=== PATIENT | male | born 1990 | race Caucasian/White ===

== ENCOUNTER 2018-10-16 22:09 | Emergency (ER) | payer SELFPAY ==
[2018-10-17] MEDS ORDERED: LIDOCAINE 1% INJ-PF (10 MG/ML) 30 ML SDV INJ ONE (01:04)
--- NOTE | 2018-10-17 01:08 | ER Document Report ---
ED General - General Chief Complaint: Laceration Stated Complaint: FACE INJURY Time Seen by Provider: 10/17/18 00:54 TRAVEL OUTSIDE OF THE [place] IN LAST 30 DAYS: No - HPI Notes: Patient is a 27-year-old male that presents to the emergency department for chief complaint of facial injury. Patient states around 8:30 PM this evening he dove face first into a pool that was 5 feet deep. Patient was wearing a goggles. He states his face hit the bottom of the pool. He does state his neck was extended. He denies loss of consciousness. Patient states initially his neck was sore but it was mild. He had some paresthesias in his right fingertips initially which have now resolved. He denied any focal weakness. Patient's main complaint is pain in his nose from where the mask was placed on his face. Last tetanus vaccine was 4 years ago. Patient does endorse drinking 7-8 beers this evening. Past Medical History: Negative Past Surgical History: Negative Social History: Daily tobacco. Social alcohol. Denies drug use. Family History: Reviewed and noncontributory for presenting illness Allergies: Reviewed, see documented allergy list. REVIEW OF SYSTEMS: CONSTITUTIONAL : No fever No chills No diaphoresis No recent illness EENT: No vision changes No congestion No sore throat Nasal pain CARDIOVASCULAR: No chest pain No palpitations RESPIRATORY: No shortness of breath No cough No difficulty breathing GASTROINTESTINAL: No abdominal pain No nausea No vomiting No diarrhea GENITOURINARY: No dysuria No hematuria No difficulty urinating MUSCULOSKELETAL: No back pain No leg pain No arm pain Neck pain SKIN: No rashes No lesions LYMPHATIC: No swollen, enlarged glands. NEUROLOGICAL: No lightheadedness No headache No weakness paresthesias PSYCHIATRIC: No anxiety No depression PHYSICAL EXAMINATION: Vital signs reviewed, nursing noted reviewed. GENERAL: Well-appearing, well-nourished and in no acute distress. HEAD: Atraumatic, normocephalic. EYES: Eyes appear normal, extraocular movements intact, sclera anicteric, conjunctiva are normal. ENT: No facial bone laxity, nasal bridge tenderness to palpation with laceration and no active bleeding, no nasal septal hematoma. Nares patent, oropharynx clear without exudates. Moist mucous membranes. NECK: Cervical collar in place. Diffuse midline cervical spine tenderness without obvious deformity, supple without lymphadenopathy LUNGS: Breath sounds clear to auscultation bilaterally and equal. No wheezes rales or rhonchi. HEART: Regular rate and rhythm without murmurs ABDOMEN: Soft, nontender, normoactive bowel sounds. No rebound, guarding, or rigidity. No masses appreciated. EXTREMITIES: Nontender, good range of motion, no pitting or edema. NEUROLOGICAL: GCS 15 no focal neurological deficits. Moves all extremities spontaneously Motor and sensory grossly intact on exam. PSYCH: Normal mood, normal affect. SKIN: Warm, Dry, normal turgor. 2.8 cm full-thickness curvilinear laceration across nasal bridge and down the left side of the nose without active bleeding or exposed bone/cartilage - Related Data Allergies/Adverse Reactions: No Known Allergies Allergy (Verified 05/04/15 16:24) Past Medical History - Social History Smoking Status: Current Every Day Smoker Family History: Reviewed & Not Pertinent Past Surgical History: Reports: Hx Orthopedic Surgery - left hand - Immunizations Hx Diphtheria, Pertussis, Tetanus Vaccination: Yes Physical Exam - Vital signs Vitals: Temp Pulse Resp BP Pulse Ox 98.5 F 81 16 122/79 99 10/16/18 22:26 10/16/18 22:26 10/16/18 22:26 10/16/18 22:26 10/16/18 22:26 Course - Re-evaluation Re-evalutation: 10/17/18 01:08 Vitals reviewed. Nursing notes reviewed. Patient is alert and mentating appropriately. His tetanus vaccine is up-to-date. Patient was placed in a cervical collar upon presentation to the emergency room in triage for concern of cervical spine injury. 10/17/18 02:[address] scans show no acute injury today. His laceration was repaired. He was counseled on wound care and follow-up. He is speaking in full sentences without slurred speech and is ambulating normally. patient discharged in stable condition. Cervical Spine CT 10/17/18 00:55 IMPRESSION: No acute abnormality. No fracture or subluxation. Facial Bones CT 10/17/18 00:55 IMPRESSION: Negative exam TECHNICAL DOCUMENTATION: Quality ID # 436: Final reports with documentation of one or more dose reduction techniques (e.g., Automated exposure control, adjustment of the mA and/or kV according to patient size, use of iterative reconstruction technique) copyright 2011 [employer]- All Rights Reserved Head CT 10/17/18 00:55 IMPRESSION: No acute intracranial findings. 10/17/18 02:35 - Vital Signs Vital signs: Temp Pulse Resp BP Pulse Ox 98.5 F 81 16 122/79 99 10/16/18 22:26 10/16/18 22:26 10/16/18 22:26 10/16/18 22:26 10/16/18 22:26 Procedures - Laceration/Wound Repair Face Time completed: 02:35 Wound length (cm): 2.8 Wound's Depth, Shape: Other - Curvilinear full-thickness Laceration pre-procedure: Sterile PPE donned, Sterile drapes applied, Shur-Clens applied Anesthetic type: 1% Lidocaine Volume Anesthetic (mLs): 3 Wound explored: Clean Irrigated w/ Saline (mLs): 100 Wound Repaired With: Sutures Suture Size/Type: 5:0, Prolene Number of Sutures: 6 - Simple interrupted Layer Closure?: No Post-procedure wound care: Sterile dressing applied Complications: No Discharge - Discharge Clinical Impression: Facial contusion Qualifiers: Encounter type: initial encounter Qualified Code(s): S00.83XA - Contusion of other part of head, initial encounter Nasal laceration Qualifiers: Encounter type: initial encounter Qualified Code(s): S01.21XA - Laceration without foreign body of nose, initial encounter Condition: Stable Disposition: HOME, SELF-CARE Instructions: Laceration Care (OM) Additional Instructions: Please return to the emergency department if you have any worsening, or concern of your symptoms. Please return to the emergency department if you develop severe headache, vision changes, numbness, weakness, or ongoing vomiting. Please follow-up with your primary care physician in 2-3 days and any other recommended physicians. If prescribed, take all medications as directed. If you have any questions or concerns do not hesitate to return the emergency department for evaluation. Have your stitches removed in 5 days Referrals: [facility] [Provider Group] - 10/22/18
--- NOTE | 2018-10-17 01:50 | RADIOLOGY REPORT (SQ) ---
CLINICAL HISTORY: trauma COMPARISON: None. TECHNIQUE: CT HEAD WITHOUT IV CONTRAST on 10/17/2018 12:55 AM CDT This exam was performed according to our departmental dose-optimization program, which includes automated exposure control, adjustment of the mA and/or kV according to patient size and/or use of iterative reconstruction technique. FINDINGS: There is no acute hemorrhage, mass effect or midline shift. Hutchinson-white differentiation is preserved. There is no hydrocephalus. There is no significant volume loss for age. The calvarium is intact. Orbits and globes are unremarkable. The paranasal sinuses are clear. Mastoid air cells are clear. IMPRESSION: No acute intracranial findings.
--- NOTE | 2018-10-17 01:51 | RADIOLOGY REPORT (SQ) ---
EXAM DESCRIPTION: CT MAXILLOFACIAL WITHOUT IV CONTRAST COMPLETED DATE/TME: 10/17/2018 00:55 CLINICAL HISTORY: 27 years, Male, trauma COMPARISON: None. TECHNIQUE: 251 Images stored on PACS. All CT scanners at this facility use dose modulation, iterative reconstruction, and/or weight based dosing when appropriate to reduce radiation dose to as low as reasonably achievable (ALARA). [facility]: Dose Right [facility]: CareDose [facility]: Dose Right [facility]: Teradose 4D [facility]: [employer] LIMITATIONS: None. FINDINGS: The globes are intact. Limited evaluation of brain parenchyma is unremarkable. The paranasal sinuses are well aerated. Negative for acute facial bone fracture. No air-fluid levels. IMPRESSION: Negative exam TECHNICAL DOCUMENTATION: Quality ID # 436: Final reports with documentation of one or more dose reduction techniques (e.g., Automated exposure control, adjustment of the mA and/or kV according to patient size, use of iterative reconstruction technique) copyright 2010 [employer]- All Rights Reserved
--- NOTE | 2018-10-17 01:54 | RADIOLOGY REPORT (SQ) ---
EXAM DESCRIPTION: CT CERVICAL SPINE WITHOUT IV CONTRAST COMPLETED DATE/TME: 10/17/2018 00:55 CLINICAL HISTORY: 27 years, Male, trauma COMPARISON: None TECHNIQUE: Multiplanar imaging through the cervical spine without contrast. This exam was performed according to our departmental dose-optimization program, which includes automated exposure control, adjustment of the mA and/or kV according to patient size and/or use of iterative reconstruction technique. FINDINGS: No fracture. No subluxation. Disc spaces are preserved. Soft tissues are unremarkable. Visualized lung is clear. IMPRESSION: No acute abnormality. No fracture or subluxation.
[2018-10-17 03:12] VITALS: BP 108/74
== END 2018-10-17 03:11 | disposition home or self-care (01) ==
LOC: ER 22:09
PROC: 0HQ1XZZ Repair Face Skin, External Approach (ICD-10-PCS; principal; 2018-10-16)
DX: S01.21XA Laceration without foreign body of nose, initial encounter (principal); R51 Headache; M54.2 Cervicalgia; R20.0 Anesthesia of skin; W16.522A Jumping or diving into swimming pool striking bottom causing other injury, initial encounter; F17.200 Nicotine dependence, unspecified, uncomplicated
CPT/HCPCS: 99283; 70450; 70486; 72125; 12013; J3490

== ENCOUNTER 2018-12-12 05:14 | Emergency (ER) | payer SELFPAY ==
[2018-12-12] MEDS ORDERED: IPRATROPIUM/ALBUTEROL 0.5-2.5 MG/3 ML AMPUL NEB ONE (06:53)
[2018-12-12] MEDS ORDERED: PREDNISONE 20 MG TABLET PO ONE (06:53)
--- NOTE | 2018-12-12 07:16 | ER Document Report ---
Entered by KELVIN MORSE SCRIBE 12/12/18 0659 Acting as scribe for:JOSHUA HERZOG MD ED General - General Chief Complaint: Sore Throat Stated Complaint: CHEST TIGHTNESS Time Seen by Provider: 12/12/18 06:47 Mode of Arrival: Ambulatory Information source: Patient Notes: Patient is a 28-year-old male that presents to the emergency department today with complaints of a sore throat for the last 2 days with associated chest tightness. Patient states he feels as if he "cannot get a deep breath". Patient has noticed wheezing which increases when trying to sleep at night. Patient has a productive cough with yellow sputum. TRAVEL OUTSIDE OF THE [place] IN LAST 30 DAYS: No - Related Data Allergies/Adverse Reactions: No Known Allergies Allergy (Verified 05/04/15 16:24) Home Medications: none Past Medical History - General Information source: Patient - Social History Smoking Status: Current Every Day Smoker Cigarette use (# per day): Yes Chew tobacco use (# tins/day): No Smoking Education Provided: No Frequency of alcohol use: None Drug Abuse: None Lives with: Family Family History: Reviewed & Not Pertinent Patient has suicidal ideation: No Patient has homicidal ideation: No Past Surgical History: Reports: Hx Orthopedic Surgery - left hand 2007 - Immunizations Hx Diphtheria, Pertussis, Tetanus Vaccination: Yes Review of Systems - Review of Systems Constitutional: No symptoms reported EENT: See HPI, Throat pain Cardiovascular: No symptoms reported Respiratory: See HPI, Cough, Other - chest tight Gastrointestinal: No symptoms reported Genitourinary: No symptoms reported Male Genitourinary: No symptoms reported Musculoskeletal: No symptoms reported Skin: No symptoms reported Hematologic/Lymphatic: No symptoms reported Neurological/Psychological: No symptoms reported -: Yes All other systems reviewed and negative Physical Exam - Vital signs Vitals: Temp Pulse Resp BP Pulse Ox 97.3 F 80 16 129/63 H 95 12/12/18 05:24 12/12/18 05:24 12/12/18 05:24 12/12/18 05:24 12/12/18 05:24 - Notes Notes: Physical Exam: General: Alert, appears well. Hoarse sounding voice. HEENT: Normocephalic. Atraumatic. PERRL. Extraocular movements intact. Oropharynx clear. Posterior oropharynx erythema without exudate. No anterior cervical lymphadenopathy. Neck: Supple. Non-tender. Respiratory: No respiratory distress. Wheezing and rhonchi bilaterally with forced cough. Cardiovascular: Regular rate and rhythm. Abdominal: Normal Inspection. Non-tender. No distension. Normal Bowel Sounds. Back: No gross abnormalities. Extremities: Moves all four extremities. Upper extremities: Normal inspection. Normal ROM. Lower extremities: Normal inspection. No edema. Normal ROM. Neurological: Normal cognition. AAOx4. Normal speech. Psychological: Normal affect. Normal Mood. Skin: Warm. Dry. Normal color. Course - Re-evaluation Re-evalutation: 12/12/18 07:43 Patient states he is able to breathe much deeper after breathing treatment, but the chest still hurts when he breathes and coughs. His throat is still sore. On repeat exam, I can now hear wheezes and rhonchi much better because he is moving more air. - Vital Signs Vital signs: Temp Pulse Resp BP Pulse Ox 97.3 F 80 16 129/63 H 95 12/12/18 05:24 12/12/18 05:24 12/12/18 05:24 12/12/18 05:24 12/12/18 05:24 Discharge - Discharge Clinical Impression: Bronchitis, acute, with bronchospasm Pharyngitis Qualifiers: Pharyngitis/tonsillitis etiology: unspecified etiology Qualified Code(s): J02.9 - Acute pharyngitis, unspecified Condition: Stable Disposition: HOME, SELF-CARE Additional Instructions: Bronchitis with Bronchospasm (Wheezing): You have bronchitis with bronchospasm (wheezing). Sometimes people develop wheezing with a chest cold. This occurs either because of an underlying tendency toward asthma or because the virus itself irritates the bronchial tubes. This irritation causes cough, shortness of breath, and wheezing. Emergency treatment of bronchospasm may include adrenaline shots or bronchodilator aerosol. You may feel lightheaded and have a rapid pulse for an hour or two. Rest and get plenty of fluids. At home, we'll treat you with a bronchodilator inhaler. Corticosteroids may be required for some patients. Until you recover, avoid chemical fumes, dusts, pollens, and exercising in very cold or dry air. If you smoke, stop now! Most cases of bronchitis get better without antibiotics. We prescribe antibiotics when we believe bacteria are damaging your airways, or if there's high risk the bronchitis will worsen into pneumonia. Increase your fluid intake. A cool mist humidifier may make your lungs more comfortable. An expectorant (cough medicine that loosens phlegm) can help. Repeated episodes of bronchitis and bronchospasm may result in lung damage -- for example, chronic bronchitis, recurrent pneumonias, or emphysema. If you develop a fever, increased wheezing, chest pain, or severe shortness of breath, you should contact the doctor immediately. Viral Syndrome: The physician has diagnosed a viral infection. Viruses not only cause "colds," but can cause many different symptoms including generalized aching, fever, headache, cough, diarrhea, nausea, vomiting, and fatigue. The treatment, for the most part, is simply relief of symptoms. This means that antibiotics are usually not given. Rest, fluids, pain medications and, occasionally, medication for the specific symptoms that are most bothersome will be prescribed. Use good handwashing to avoid passing the virus to others. Shared toys should be cleaned with disinfectant. Clean the toilets, sinks, and counter surfaces in bathrooms. Launder clothing in hot water. Contact the physician if you develop any new or unusual symptoms such as severe headache, stiff neck, high fever, chest pain, productive cough, or short ness of breath. You should be rechecked if you don't see marked improvement within seven to 10 days. Start the prednisone as prescribed tomorrow. Drink plenty of fluids get plenty of rest. Stop smoking. Use the inhaler as needed for wheezing. Follow-up with a local medical doctor if not improving. RETURN TO THE EMERGENCY ROOM IF ANY NEW OR WORSENING SYMPTOMS. Prescriptions: Prednisone [Deltasone 10 mg Tablet] 10 mg PO ASDIR PRN #21 tablet PRN Reason: Albuterol Sulfate [Proair Hfa Inhalation Aerosol 8.5 gm Mdi] 2 puff IH ASDIR PRN #1 mdi PRN Reason: Forms: Return to Work Scribe Attestation: 12/12/18 07:16 I personally performed the services described in the documentation, reviewed and edited the documentation which was dictated to the scribe in my presence, and it accurately records my words and actions. I personally performed the services described in the documentation, reviewed and edited the documentation which was dictated to the scribe in my presence, and it accurately records my words and actions.
[2018-12-12] MEDS ORDERED: ALBUTEROL SULFATE 0.083% NEB 2.5 MG/3 ML AMPUL NEB ONE (07:44)
[2018-12-12] MEDS ORDERED: ALBUTEROL SULFATE HFA (90 MCG/PUFF) 8 GM MDI (1 MDI/ER DISP) IH ONE (07:44)
[2018-12-12 07:55] VITALS: BP 110/67
== END 2018-12-12 08:08 | disposition home or self-care (01) ==
LOC: ER 05:14
DX: J20.9 Acute bronchitis, unspecified (principal); J02.9 Acute pharyngitis, unspecified; R07.9 Chest pain, unspecified; F17.210 Nicotine dependence, cigarettes, uncomplicated
CPT/HCPCS: 94640 ×2; 99283; 87070; 87880; J7512; J3490; J7620

== ENCOUNTER 2019-01-25 16:23 | Emergency (ER) | payer SELFPAY ==
--- NOTE | 2019-01-25 17:06 | ER Document Report ---
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 Patient does acknowledge daily alcohol use and marijuana use. Patient has had marital problems and a recent DUI and was told that he was a danger to his children. Patient denies any previous history of mental illness. I have greeted and performed a rapid initial assessment of this patient. A comprehensive ED assessment and evaluation of the patient, analysis of test results and completion of the medical decision making process will be conducted by additional ED providers. TRAVEL OUTSIDE OF THE [place] IN LAST 30 DAYS: No - Related Data Allergies/Adverse Reactions: No Known Allergies Allergy (Verified 05/04/15 16:24) Past Medical History Past Surgical History: Reports: Hx Orthopedic Surgery - left hand 2007 - Immunizations Hx Diphtheria, Pertussis, Tetanus Vaccination: Yes Physical Exam - Vital signs Vitals: Temp Pulse Resp BP Pulse Ox 98.3 F 70 16 120/76 97 01/25/19 16:45 01/25/19 16:45 01/25/19 16:45 01/25/19 16:45 01/25/19 16:45 - Psychological Associated symptoms: Depressed, Other - Poor eye contact Course - Vital Signs Vital signs: Temp Pulse Resp BP Pulse Ox 98.3 F 70 16 120/76 97 01/25/19 16:45 01/25/19 16:45 01/25/19 16:45 01/25/19 16:45 01/25/19 16:45
[2019-01-25 17:49] LABS: ABSOLUTE EOSINOPHILS # (AUTO) 0.1 10^3/uL (0.0-0.6); ABSOLUTE LYMPHOCYTES (AUTO) 2.9 10^3/uL (0.5-4.7); ABSOLUTE MONOCYTES (AUTO) 0.2 10^3/uL (0.1-1.4); ABSOLUTE NEUT (AUTO) 4.2 10^3/uL (1.7-8.2); BASOPHILS % (AUTO) 0.3 % (0-2); EOSINOPHILS % (AUTO) 1.2 % (0-6); HEMATOCRIT 49.7 % (37.9-51.0); HEMOGLOBIN 16.9 g/dL (13.5-17.0); LYMPHOCYTES % (AUTO) 38.7 % (13-45); MEAN CORPUSCULAR HEMOGLOBIN 31.8 pg (27.0-33.4); MEAN CORPUSCULAR HGB CONC 33.9 g/dL (32.0-36.0); MEAN CORPUSCULAR VOLUME 94 fl (80-97); PLATELET COUNT 265 10^3/uL (150-450); RED BLOOD COUNT 5.29 10^6/uL (4.35-5.55); RED CELL DISTRIBUTION WIDTH 12.6 % (11.5-14.0); SEGMENTED NEUTROPHILS % (AUTO) 56.8 % (42-78); TOTAL CELLS COUNTED % (AUTO) 100 %; WHITE BLOOD COUNT 7.5 10^3/uL (4.0-10.5)
[2019-01-25 18:13] LABS: ALBUMIN 5.2 g/dL (3.5-5.0); ALCOHOL 288 mg/dL (NONE DETECTED); ALKALINE PHOSPHATASE 88 U/L (38-126); ANION GAP 13 (5-19); ASPARTATE AMINO TRANSFERASE 28 U/L (17-59); BILIRUBIN,DIRECT 0.1 mg/dL (0.0-0.4); BILIRUBIN,TOTAL 0.3 mg/dL (0.2-1.3); BLOOD UREA NITROGEN 13 mg/dL (7-20); CALCIUM 9.4 mg/dL (8.4-10.2); CARBON DIOXIDE 28 mmol/L (22-30); CHLORIDE 104 mmol/L (98-107); GLUCOSE 95 mg/dL (75-110); POTASSIUM 4.6 mmol/L (3.6-5.0); TOTAL PROTEIN 8.3 g/dL (6.3-8.2)
[2019-01-25 18:16] LABS: ACETAMINOPHEN < 10 ug/mL (10-30); SALICYLATE < 1.0 mg/dL (2.0-20.0)
--- NOTE | 2019-01-25 18:35 | ER Document Report ---
ED General - General Chief Complaint: Psych Problem Stated Complaint: SUICIDAL IDEATION Time Seen by Provider: 01/25/19 17:03 Mode of Arrival: Ambulatory TRAVEL OUTSIDE OF THE [place] IN LAST 30 DAYS: No - HPI Notes: Patient is a 28-year-old male who presents emergency department for evaluation of suicidal ideation. He is not a very forthcoming historian. When I do know is that he is from his as of June. He has 2 young children. He states that his father had a stroke earlier today. He evidently confided in someone that he was suicidal, and was advised that he come here. He does have a recent DUI, and told the nurse practitioner that he is "a danger to his children." I do not know if that was his sentiments or the sentiments of CPS. The patient admits to suicide attempt in the past but will not discuss it. I asked him if he has a plan at this time and he begins to avoid eye contact. He is otherwise not very forthcoming in regards to any other issues. He states to me that he had some sort of "urinary symptom" that was treated by CPS per him. - Related Data Allergies/Adverse Reactions: No Known Allergies Allergy (Verified 05/04/15 16:24) Home Medications: Acyclovir Past Medical History - General Information source: Patient - Social History Smoking Status: Current Every Day Smoker Chew tobacco use (# tins/day): No Frequency of alcohol use: Heavy Drug Abuse: Marijuana Family History: Reviewed & Not Pertinent Patient has suicidal ideation: Yes Patient has homicidal ideation: No Past Surgical History: Reports: Hx Orthopedic Surgery - left hand 2007 - Immunizations Hx Diphtheria, Pertussis, Tetanus Vaccination: Yes Review of Systems - Review of Systems Constitutional: No symptoms reported EENT: No symptoms reported Cardiovascular: No symptoms reported Respiratory: No symptoms reported Gastrointestinal: No symptoms reported Genitourinary: No symptoms reported Musculoskeletal: No symptoms reported Skin: No symptoms reported Neurological/Psychological: See HPI Physical Exam - Vital signs Vitals: Temp Pulse Resp BP Pulse Ox 98.3 F 70 16 120/76 97 01/25/19 16:45 01/25/19 16:45 01/25/19 16:45 01/25/19 16:45 01/25/19 16:45 - Notes Notes: This is a 28-year-old male who appears his stated age, no acute distress. He is a very flat affect, avoids eye contact. He is pacing around the room, then in the hallway. He requires redirection multiple times. Vital signs reviewed, please refer to chart. Head is normocephalic, atraumatic. Pupils equal round, reactive to light. Neck is supple without meningismus. Heart is regular rate and rhythm. Lungs are clear to auscultation bilaterally. Abdomen is soft, nontender, normoactive bowel sounds throughout. Extremities without cyanosis, clubbing. Posterior calves are nontender. Peripheral pulses are equal. Skin is warm and dry. Patient is awake, alert, neurological exam is nonfocal. Course - Re-evaluation Re-evalutation: 01/25/19 18:34 Patient presents emergency department for evaluation. He is not being very forthcoming historian, but he did admit to suicidal ideation. Otherwise he will not give me any further details. Given my exam and interview, I am concerned that this patient is a significant threat to himself, possibly to others. IVC orders were placed. Awaiting laboratory investigations for medical clearance. 01/25/19 19:36 IVC order placed. Patient's blood alcohol is elevated, otherwise laboratory investigations are largely unremarkable. Patient is medically cleared for psychosocial evaluation. - Vital Signs Vital signs: Temp Pulse Resp BP Pulse Ox 99.2 F 75 18 106/76 98 01/25/19 18:02 01/25/19 18:02 01/25/19 18:02 01/25/19 18:02 01/25/19 18:02 - Laboratory Result Diagrams: 01/25/19 17:30 01/25/19 17:30 Laboratory results interpreted by me: 01/25/19 17:30 Sodium 145.4 H Total Protein 8.3 H Albumin 5.2 H Salicylates < 1.0 L Acetaminophen < 10 L Discharge - Discharge Clinical Impression: Alcohol abuse, Suicidal ideation Alcohol intoxication Qualifiers: Complication of substance-induced condition: uncomplicated Qualified Code(s): F10.920 - Alcohol use, unspecified with intoxication, uncomplicated Condition: Stable Disposition: OTHER
[2019-01-25 19:22] LABS: APPEARANCE,URINE CLEAR; BILIRUBIN,URINE NEGATIVE (NEGATIVE); COLOR,URINE YELLOW; GLUCOSE, URINE NEGATIVE (NEGATIVE); KETONES,URINE NEGATIVE (NEGATIVE); LEUKOCYTE ESTERASE,URINE NEGATIVE (NEGATIVE); NITRITE,URINE NEGATIVE (NEGATIVE); PROTEIN,URINE NEGATIVE (NEGATIVE); URINE SPECIFIC GRAVITY 1.012; UROBILINOGEN,URINE NEGATIVE mg/dL (<2.0)
[2019-01-25 19:35] LABS: URINE AMPHETAMINES SCREEN NEGATIVE; URINE BARBITURATES SCREEN NEGATIVE; URINE BENZODIAZEPINES SCREEN NEGATIVE; URINE COCAINE SCREEN NEGATIVE; URINE METHADONE SCREEN NEGATIVE; URINE PHENCYCLIDINE SCREEN NEGATIVE
[2019-01-25 19:37] LABS: URINE MARIJUANA (THC) SCREEN UNCONFIRMED POSITIVE
[2019-01-25] MEDS ORDERED: NICOTINE 21 MG/24 HR PATCH.TD24 TD ONE (20:13)
--- NOTE | 2019-01-25 22:31 | EKG REPORT ---
SEVERITY:- OTHERWISE NORMAL ECG - SINUS RHYTHM ST ELEV, PROBABLE NORMAL EARLY REPOL PATTERN : Confirmed by: Sue Leung MD 25-Jan-2019 22:30:01
[2019-01-26] MEDS ORDERED: NICOTINE 21 MG/24 HR PATCH.TD24 ONE (06:26)
--- NOTE | 2019-01-26 10:32 | PSYCHOLOGICAL NOTE ---
Psych Note - Psych Note Date seen by psych provider: 01/25/19 Time seen by psych provider: 07:40 Psych Note: Reason for consult: SI-ETOH Abuse This 28-year-old male patient brought to emergency room via POV accompanied by mobile crisis. Patient presented with suicidal ideation and ETOH intoxication (PRAVEEN 288). Patient states he is stressed. Patient is experiencing several psychosocial stressors. Patient is going through a divorce, his father had a stroke yesterday morning, is experiencing work related stressors, and he is involved with CPS due to driving while intoxicated with his children in the car. Patient reported a history of an alcohol abuse cycle in which he experienced a stressor, engaged in alcohol use as coping mechanism, experienced consequences as a result of alcohol use, and then engaged in more alcohol use when he became overwhelmed from the consequences of the alcohol use. Patient states that is when he experiences passive suicidal ideation with no plan or intent. Patient denies current suicidal ideation. Patient denied a desire to . Patient states he gets down on myself when he is intoxicated. Patient is experiencing work related consequences and consequences from CPS as a result of alcohol use. Patient was pulled over for driving under the influence of alcohol with his children and in the car, resulting in CPS involvement. Patient was charged with child endangerment and currently has supervised visitation with his children under the supervision of his mother. Patient reports a cycle of drinking, and then oversleeping the next day missing important appointments. Patient verbalized a desire and need for outpatient therapy to address alcohol related concerns. Patient declines inpatient treatment at this time because "I need to keep my job." Patient expressed optimism "at the resources that are out there." Patient reports drinking 3 out of 7 days per week. Patient states he typically consumes a six pack and 2-42oz beers when he drinks. On a 0-5 scale, patient reports a 3 when asked how significant alcohol is impairs his life. Patient states he began drinking at age 13 with his friends. Patient states he used alcohol as a coping mechanism from bullying. Patient spoke of a decrease in self-esteem regarding not completing high school or obtaining a GED. Patient states he left home at 18 but had to move back home at 21. Patient spoke of further stress in self-esteem relating to having to move back home. Patient stated his first DUI was recently after moving back home. Patient denies a history of physical or sexual abuse. Patient stated there were a couple of traumas but would not elaborate. Patient stated my mind is blocked. When asked to elaborate, patient replied there are things I cant remember. Patient denies a family history of mental health issues. Patient identified his family and as a strong support system. Provided psychoeducation on the substance abuse cycle- and how trauma influences the cycle. Provided psychoeducation on the physiological and psychological effect of alcohol abuse. Obtained collateral information from and aunt who state that patient is not a danger to himself or others. and aunt verbalized a belief that he is reaching out for help and is not suicidal. is also agreeable to support patient to the degree she is able within the confines of the supervised supervision. Per report from [place], patient was heard "cocking a gun" while on the phone with mobile coffee plantation worker. Patient stated he has 2 guns in the home, however denied he had the gun in his possession when he was on the phone with mobile crisis. Clinician has already spoken with aunt about removing guns from the home prior to clinician receiving this information. Patient and aunt verified aunt had already removed the guns from the home. Patient is alert and oriented to person, place, time and circumstance. Mood normal with congruent affect. Patient denies suicidal and homicidal ideation. Delusions are absent and behavior is congruent with an intact reality based presentation (i.e. organized and linear thought processes). Patient denies auditory and visual hallucinations. There is no observed behavior that suggests patient is responding to internal stimuli. Eye contact is good. Conversational speech is within normal rate, tone, and prosody. Intellectual ability appears to be within average range. Attention and concentration are good. Insight, judgment, and impulse control are fair. DSM Diagnosis: R/O PTSD Possible Major Depressive Disorder Alcohol Use Disorder Medication recommendations per [facility] contracted psychiatrist Dr. Ruslan SOSA is as follows: Effexor 37.5MG, twice a day Buspar 5MG, twice a day Impression/Plan: Patient is cleared from acute psychiatric services. Patient does not meet IVC criteria per ID GS 122C. It is recommended that IVC be rescinded. Medication recommendations have been provided. Patient denies suicidal and homicidal ideations. There is no observed behavior that suggests patient is responding to internal stimuli. Patient is agreeable to outpatient treatment to address mental health and alcohol abuse concerns. Patient has a strong support system in his family. Patient is able to be thoughtfully and purposefully engaged in his plan of care. Patient identified his aunt to be involved in his plan of care. Patient is agreeable to outpatient treatment. Patients aunt has agreed to be responsible for removing potential safety hazards from the home (weapons, alcohol, etc), assist with scheduling of and transportation to appointments, and be responsible for medication management and administration. Plan is for patient to follow up with an outpatient mental health provider for medication management and mental health services. Patient has agreed to stay with aunt overnight. Patient was provided specific information on Port and IFS. Patient was provided with street sheet resource with free clinics highlighted. Patient was provided with online substance abuse support group resource ([employer]). Dr. Dsouza was consulted on the care and management of this patient; attending physician is in agreement with recommendations and disposition.
[2019-01-26] MEDS: VENLAFAXINE HCL 37.5 MG CAP.SR.24H PO SCH ×2 (11:51→17:28)
[2019-01-26] MEDS: BUSPIRONE HCL 10 MG TABLET PO SCH ×2 (11:51→17:28)
[2019-01-26] MEDS ORDERED: IBUPROFEN 800 MG TABLET PO ONE (12:06)
--- NOTE | 2019-01-26 12:14 | ER Document Report ---
Doctor's Note Notes: 01/26/19 18:16 Patient's vital signs and previous labs, diagnostic images reviewed. Reviewed mental health notes, nurse's notes and previous providers notes. VSS. Pt is in no distress at this time. Denies any SI or HI. Patient ate breakfast lunch and dinner without any concerns. Patient was complaining of some numbness and tingling at the site where his labs were drawn yesterday General: A&Ox3. Answers questions appropriately. Heart: RRR Lungs: CTAB MS: strength 5 out of 5 in bilateral upper extremities, [place] +2 in bilateral upper extremities equally no pain with pronation supination of his elbow bilaterally. DTR +2 bilateral upper extremity is equally. No erythema induration warmth to touch to injection site. Psych: Flat affect A/P: Continue monitoring and rec's per MH. Normal diet Consider discharging home, waiting for Dr. Mazin Ramey to give her final disposition for where patient should be placed or if he should be going home.
[2019-01-26] MEDS ORDERED: NICOTINE 21 MG/24 HR PATCH.TD24 TD ONE (17:38)
[2019-01-26] MEDS ORDERED: DIPHENHYDRAMINE HCL 50 MG/ML VIAL IM PRN (17:40)
[2019-01-26 19:54] VITALS: BP 124/77
== END 2019-01-26 19:28 | disposition home or self-care (01) ==
LOC: ER 16:23
DX: R45.851 Suicidal ideations (principal); F10.920 Alcohol use, unspecified with intoxication, uncomplicated; R39.198 Other difficulties with micturition; F17.200 Nicotine dependence, unspecified, uncomplicated
CPT/HCPCS: 93005; 99285; 36415; 80307 ×4; 85025; 80053; 81001; 93010; J3490

== ENCOUNTER 2019-02-11 13:03 | Emergency (ER) | payer SELFPAY ==
[2019-02-11 13:12] VITALS: BP 137/78
--- NOTE | 2019-02-11 14:26 | ER Document Report ---
HPI - HPI Time Seen by Provider: 02/11/19 14:12 Pain Level: Denies Notes: 28-year-old male presents to the emergency room for medication refill of his BuSpar and Effexor patient ran out of his medication approximately 6 days ago after he was filled for this medication on January 26, 2019 after being IVC need for SI patient has an appointment coming up on March 04 2019 in [facility], is not on a port for any further evaluation because he does not have insurance. Patient states he did drink a sixpack of beer over the weekend. patient states that he has been using his medication sparingly. Denies any homicidal or suicidal ideation. Reports he has had some "rough days". Patient not been reevaluated by mental health provider since being discharged from the emergency room. Denies fevers, chills, chest pain,palpitations, shortness of breath, dyspnea, nausea, vomiting, diarrhea, abdominal pain, hematuria,blurred vision, double vision, loss of vision, speech changes, LH, dizziness, syncope, headaches, wheezing, ST, URI, neck pain, weakness, bowel or bladder dysfunction, saddle anesthesia, numbness or tingling in bilateral upper or lower extremities equally, muscle paralysis, weakness in bilateral upper or lower extremities equally or rash. Past Medical History - General Information source: Patient - Social History Smoking Status: Current Every Day Smoker Chew tobacco use (# tins/day): No Family History: Reviewed & Not Pertinent Patient has suicidal ideation: No Patient has homicidal ideation: No Past Surgical History: Reports: Hx Orthopedic Surgery - left hand 2008 - Immunizations Hx Diphtheria, Pertussis, Tetanus Vaccination: Yes Vertical Provider Document - CONSTITUTIONAL Agree With Documented VS: Yes Exam Limitations: No Limitations General Appearance: WD/WN Notes: PHYSICAL EXAMINATION:reviewed vital signs by RN GENERAL: Well-appearing, well-nourished and in no acute distress. HEAD: Atraumatic, normocephalic. EYES: Pupils equal round and reactive to light, extraocular movements intact, sclera anicteric, conjunctiva are normal. ENT: Nares patent, oropharynx clear without exudates. Moist mucous membranes. NECK: Normal range of motion, supple without lymphadenopathy LUNGS: Breath sounds clear to auscultation bilaterally and equal. No wheezes rales or rhonchi. HEART: Regular rate and rhythm without murmurs ABDOMEN: Soft, nontender, nondistended abdomen. No guarding, no rebound. No masses appreciated. Musculoskeletal: Normal range of motion, no pitting or edema. No cyanosis. NEUROLOGICAL: Cranial nerves grossly intact. Normal speech, normal gait. Normal sensory, motor exams PSYCH: Normal mood, normal affect. SKIN: Warm, Dry, normal turgor, no rashes or lesions noted. - INFECTION CONTROL TRAVEL OUTSIDE OF THE [place] IN LAST 30 DAYS: No Course - Re-evaluation Re-evalutation: 02/11/19 14:37 Afebrile vital stable no distress. Nurse's notes reviewed. Christina from mental health at bedside to speak with patient due to patient being recently IVC'd. Christina is contacting court to see if she can get appointment sooner than March 04. Berkley Morales, mental health team, bedside to evaluate patient. They felt that he was appropriate to get medication refills, found local providers who would be able to also manage his mental health needs. [employer] the patient was not a harm to himself or anyone around him. Patient advised to return to the emergency room if he cannot get the appointment and is out of his medication as well if he is having any homicidal suicidal ideation. I do not feel that this patient is a harm to himself or anyone around him as does the mental health team. Patient advised to return to the emergency room if experiencing any worsening symptoms. - Vital Signs Vital signs: Temp Pulse Resp BP Pulse Ox 98.2 F 62 18 137/78 H 98 02/11/19 14:09 02/11/19 14:09 02/11/19 14:09 02/11/19 14:09 02/11/19 14:09 Discharge - Discharge Clinical Impression: Medication refill Condition: Stable Disposition: HOME, SELF-CARE Additional Instructions: port tomorrow and integrated family tomorrow. medications refilled. Return immediately for any new or worsening symptoms. Follow up with primary care provider, call tomorrow to make followup appointment. Prescriptions: Buspirone HCl [Buspar 5 mg Tablet] 1 tab PO BID #20 tab Venlafaxine HCl [Effexor] 37.5 mg PO BID #20 tablet Referrals: ERROL GALLARDO PSYD [ALLIED HEALTH PROFESSIONAL] - Follow up as needed
--- NOTE | 2019-02-11 15:45 | PSYCHOLOGICAL NOTE ---
Psych Note - Psych Note Date seen by psych provider: 02/11/19 Time seen by psych provider: 14:20 Psych Note: Presenting Problem: Patient came to the ED via POV (her reported his mother dropped him off, went to go pick his kids up from school and he is to call her back when he is ready for a ride) for medication refill (Effexor and Buspar started and prescribed from 01/25/19 ED visit). He identified there has been family discord and he has not had follow up yet. He presented paperwork which is an appointment for [facility] on 03/04/19 at 1000. He stated he does not have insurance and family influence as to where he goes for outpatient services has been difficult. He denied suicidal ideation. He stated "I have just been depressed and feeling like life sucks." He further stated "I am trying to get better, I want to get better." He denied access to firearms or guns. He stated he has been taking the medications as prescribed. He admitted to drinking a 12 pack of [place] beer on Friday. He denied drinking daily and denied the need for detoxification. He identified his mother has been involved with his care and gave verbal consent to coordinate with her. Patient was alert and oriented x5 to self/person/place/time/situation. Mood was euthymic with congruent affect. He denied SI/HI. He did not appear to be responding to internal stimuli as evidenced by fair eye contact, engaging in evaluation and carrying on dialogue conversation which was within normal limits for rate/tone/prosody. He did not appear to have any physical withdrawal symptoms (no sweating, not shaking or fidgety). At 1438 called Gigi the [employer] Repairer for [facility]. He stated patient was discharged from [facility] 02/05/19 due to not returning call. He confirmed patient could still do a walk in -Fri [phone] for open access to initiate services. At 1503 called patient's mother/EC Yamini Guardado ([phone]). She confirmed she has been involved with patient's care. She stated there are no firearms or guns in the home since the previous ED visit on 01/25/19. She stated "he ran out of medication and it has been difficult trying to get him into a provider especially before the medications ran out." She agreed to be in charge of medications and administration. She was made aware patient provided with an outpatient MH resource sheet which highlighted [facility] for crisis/talk therapy/linkage to other services and supports, as well as [facility] local agency which documented walk in -Fri [phone] and noted to walk in tomorrow (02/12/19) morning, but highlighted Port with documentation of walk in M-F 0800- 1630. She confirmed she was picking patient up from the ED. Diagnosis: Alcohol Use Disorder Severe (relapse Friday per patient) Depression Anxiety Medication recommendations made by the psychiatric medication provider, Dr. Ruslan MD., includes: Same regimen as previous ED visit on 01/25/19: Effexor 37.5MG BID and Buspar 5MG BID Impression/Plan: Patient is cleared from acute psychiatric services. Patient was alert and oriented x5 to self/person/place/time/situation. Mood was euthymic with congruent affect. He denied SI/HI. He did not appear to be responding to internal stimuli as evidenced by fair eye contact, engaging in evaluation and carrying on dialogue conversation which was within normal limits for rate/tone/prosody. He did not appear to have any physical withdrawal symptoms (no sweating, not shaking or fidgety). He presented to ED for medication refill. Mother included in plan of care and agrees to be in charge of medications and administration. Mother providing transportation home from ED. Patient provided with the outpatient MH resource sheet which highlighted [facility] for crisis/talk therapy/linkage to other services and supports, as well as [facility] local agency which documented walk in -Fri [phone] and noted to walk in tomorrow (02/12/19) morning. Consulted with Dr. Dsouza regarding the management and care of patient. ED Physician in agreement with recommendations.
== END 2019-02-11 15:35 | disposition home or self-care (01) ==
LOC: ER 13:03
DX: Z76.0 Encounter for issue of repeat prescription (principal); F32.9 Major depressive disorder, single episode, unspecified; F41.9 Anxiety disorder, unspecified
CPT/HCPCS: 99283

== ENCOUNTER 2019-02-22 17:19 | Emergency (ER) | payer SELFPAY ==
[2019-02-22 18:41] LABS: ALCOHOL 249 mg/dL (NONE DETECTED); ALKALINE PHOSPHATASE 94 U/L (38-126); ANION GAP 18 (5-19); ASPARTATE AMINO TRANSFERASE 34 U/L (17-59); BILIRUBIN,DIRECT 0.2 mg/dL (0.0-0.4); BILIRUBIN,TOTAL 0.4 mg/dL (0.2-1.3); BLOOD UREA NITROGEN 12 mg/dL (7-20); CALCIUM 9.6 mg/dL (8.4-10.2); CARBON DIOXIDE 24 mmol/L (22-30); CHLORIDE 100 mmol/L (98-107); GLUCOSE 101 mg/dL (75-110); POTASSIUM 4.3 mmol/L (3.6-5.0)
[2019-02-22] MEDS ORDERED: NORMAL SALINE 1000 ML 1,000 ML IV ONE (18:42)
[2019-02-22 18:47] LABS: ACETAMINOPHEN < 10 ug/mL (10-30); SALICYLATE < 1.0 mg/dL (2.0-20.0)
--- NOTE | 2019-02-22 18:50 | EKG REPORT ---
SEVERITY:- NORMAL ECG - SINUS RHYTHM : Confirmed by: Cj Olivier MD 22-Feb-2019 18:49:53
--- NOTE | 2019-02-22 19:02 | ER Document Report ---
ED Psych Disorder / Suicide - General Mode of Arrival: Medic Information source: Patient TRAVEL OUTSIDE OF THE U.[place] IN LAST 30 DAYS: No - HPI Patient complains to provider of: Overdose, Suicidal attempt Onset: This morning Quality of pain: Achy Pain Level: 4 Suicide Risk Factors: Depressed, Male, No spouse Suicide Attempt Method: Overdose Overdose of: Acetominophen, Alcohol, Anti-depressants Associated symptoms: Depressed Similar symptoms previously: No Recently seen / treated by doctor: No - Related Data Home Medications: Buspar, Effexor. <CHERIE HILL - Last Filed: 02/22/19 19:58> <MIN COLLINS - Last Filed: 02/23/19 20:12> - General Chief Complaint: Overdose Stated Complaint: SUICIDAL IDEATION Time Seen by Provider: 02/22/19 18:26 Primary Care Provider: [facility] [Outside] - Follow up as needed Notes: Patient presents stating that he attempted suicide via pills and alcohol at 3:00 this morning. Patient states he took an unknown amount of BuSpar, Effexor, Tylenol and melatonin. Patient states that he then drinks several cans of beer. Patient states that he went to sleep and woke up this afternoon with vomiting. Patient states he vomited 3 times and noticed blood in his emesis which prompted him to call EMS. Patient states that he has a history of depression. Patient states that he did text friends and family that he loved them prior to taking the pills but states that nobody responded. (CHERIE HILL) - Related Data Allergies/Adverse Reactions: No Known Allergies Allergy (Verified 05/04/15 16:24) Past Medical History - General Information source: Patient - Social History Smoking Status: Current Every Day Smoker Frequency of alcohol use: Heavy Drug Abuse: None Occupation: None Lives with: Alone Family History: Reviewed & Not Pertinent Patient has suicidal ideation: Yes Patient has homicidal ideation: No Psychiatric Medical History: Reports: Hx Depression Past Surgical History: Reports: Hx Orthopedic Surgery - left hand 2008 - Immunizations Hx Diphtheria, Pertussis, Tetanus Vaccination: Yes <CHERIE HILL - Last Filed: 02/22/19 19:58> Review of Systems - Review of Systems Constitutional: No symptoms reported. denies: Fever EENT: No symptoms reported Cardiovascular: No symptoms reported. denies: Chest pain Respiratory: No symptoms reported. denies: Cough Gastrointestinal: Abdominal pain, Vomiting, Blood in vomit Genitourinary: No symptoms reported Male Genitourinary: No symptoms reported Musculoskeletal: No symptoms reported Skin: No symptoms reported Hematologic/Lymphatic: No symptoms reported Neurological/Psychological: No symptoms reported <CHERIE HILL - Last Filed: 02/22/19 19:58> Physical Exam - General General appearance: Alert In distress: None - HEENT Head: Normocephalic, Atraumatic Eyes: Normal Conjunctiva: Normal Mouth/Lips: Normal Mucous membranes: Normal Pharynx: Normal Neck: Normal, Supple. No: Lymphadenopathy - Respiratory Respiratory status: No respiratory distress Chest status: Nontender Breath sounds: Normal. No: Rales, Rhonchi, Stridor, Wheezing Chest palpation: Normal - Cardiovascular Rhythm: Regular Heart sounds: S1 appreciated, S2 appreciated - Abdominal Inspection: Normal Distension: No distension Bowel sounds: Normal Tenderness: Tender - Generalized abdomen Organomegaly: No organomegaly - Back Back: Normal, Nontender - Extremities General upper extremity: Normal inspection, Normal strength General lower extremity: Normal inspection, Normal strength - Neurological Neuro grossly intact: Yes Cognition: Normal [place] Coma Scale Eye Opening: Spontaneous [place] Coma Scale Verbal: Oriented [place] Coma Scale Motor: Obeys Commands [place] Coma Scale Total: 15 - Psychological Associated symptoms: Depressed - Skin Skin Temperature: Warm Skin Moisture: Dry Skin Color: Normal <CHERIE HILL - Last Filed: 02/22/19 19:58> - Vital signs Vitals: Pulse Ox 99 02/22/19 17:29 Course - Laboratory Result Diagrams: 02/22/19 17:38 02/22/19 17:38 <CHERIE HILL - Last Filed: 02/22/19 19:58> - Laboratory Result Diagrams: 02/22/19 17:38 02/23/19 02:19 <MIN COLLINS - Last Filed: 02/23/19 20:12> - Re-evaluation Re-evalutation: 02/22/19 19:02 Spoke with poison control regarding patient presentation and reported ingestion. Recommends monitoring for 24 hours post time of ingestion and repeating EKG prior to clearing patient. States that with Effexor we should monitor for any seizure activity as well as QT prolongation. States that if patient has any QRS widening they recommend sodium bicarb bolus versus infusion. Also recommends adding on AST, ALT and INR. Advises using Tylenol nomogram to determine any needed treatment. 02/22/19 19:58 Report and handoff given to Sarah Donis [employer] AND [employer] SERVICER. IVC paperwork initiated although is presently waiting for notary signature (CHERIE HILL) - Vital Signs Vital signs: Temp Pulse Resp BP Pulse Ox 98.4 F 82 16 133/90 H 99 02/23/19 17:54 02/23/19 17:54 02/23/19 17:54 02/23/19 17:54 02/23/19 17:54 - Laboratory Laboratory results interpreted by me: 02/22/19 02/22/19 02/23/19 17:38 20:10 02:19 Glucose 61 L Ur Leukocyte Esterase SMALL H Salicylates < 1.0 L Acetaminophen < 10 L Discharge <CHERIE HILL - Last Filed: 02/22/19 19:58> <MIN COLLINS - Last Filed: 02/23/19 20:12> - Discharge Clinical Impression: ETOH abuse Condition: Stable Disposition: HOME, SELF-CARE Additional Instructions: You have been evaluated by both medical and behavioral health teams and have been deemed appropriate for discharge. You have voluntarily elected to seek substance abuse treatment at [facility]. You are encouraged to follow through with this treatment opportunity. You are being provided with the contact information for mobile crisis, as needed. SUICIDAL IDEATION: Suicidal ideation is a common medical term for thoughts about suicide, which may be as detailed as a formulated plan, without the suicidal act itself. Although most people who undergo suicidal ideation do not commit suicide, some go on to make suicide attempts. The range of suicidal ideation varies greatly from fleeting to detailed planning, role playing, and unsuccessful attempts. While thoughts about suicide are common, most people do not carry out serious actions to commit suicide. Based upon your evaluation and discussion with you, we do not believe you are currently at risk to act upon your thoughts of suicide. You have agreed to return to the Emergency Department, at any time, if you feel inclined to act upon your suicidal thoughts. ACUTE ALCOHOL INTOXICATION and ALCOHOL ABUSE: Your evaluation revealed very high levels of alcohol. You can from drinking a large amount of alcohol rapidly! Further, there's the risk of falls, traffic accidents, and fights. A high portion (about 50 percent) of the serious injuries seen in hospital emergency rooms are caused by alcohol. Alcohol overdosage is usually due to an underlying emotional or psychiatric problem. You may benefit from counselling. If "binge" drinking is an ongoing problem for you, or if you drink ANY AMOUNT of alcohol EVERY day, you most likely have a tendency to alcoholism. You should avoid alcohol totally. We can refer you for treatment. Persons with alcohol problems are often also prone to other addictions -- you should discuss any use of medications or drugs with the doctor. You should be watched at home for the next several hours by someone who has not been drinking. Get extra fluids for the next 24 hours. Call the doctor if there is repeated vomiting, increasing headache, decreasing level of alertness, or any other worsening. CHRONIC ALCOHOLISM and ALCOHOL ABUSE: Your evaluation reveals evidence of chronic alcoholism, an addiction to alcohol. The tendency to alcoholism may be inherited. Chronic use of alcohol weakens muscles, causes fatty deposits in the liver, damages the stomach, makes you more prone to infections, and can cause defects in unborn children. In the long run, brain atrophy and cirrhosis of the liver result. You are also at greater risk for certain types of cancer, such as cancer of the mouth, throat, stomach, and liver. Counselling services are available to help you. In-hospital treatment programs often help. Support groups such as Alcoholics Anonymous can be very useful in beating this addiction. Your physician can make a referral for you. As alcoholics often are prone to other addictions, you should discuss your use of any other medications with the doctor. ALCOHOL WITHDRAWAL: Your symptoms are caused by alcohol withdrawal. After a period of frequent drinking, the brain and body are changed by the alcohol. When you quit or reduce your drinking, the nervous system becomes unstable. Withdrawal symptoms can start a few hours after your last drink, but sometimes don't begin until a couple of days later. Symptoms can include shakiness, sweating, insomnia, nausea, vomiting, fearfulness, hallucinations, and seizures. In addition to the acute effects of alcohol withdrawal, we often have to deal with the medical effects of alcoholism. These problems often include d ehydration, stomach irritation, intestinal bleeding, low blood sugar, liver disease, and pancreas inflammation. Treatment for alcohol withdrawal includes mild sedatives, vitamins, and fluids. You need to be with someone who can help if symptoms become severe. Many patients can withdraw at home. Admission to the hospital or a detox facility may be necessary if withdrawal symptoms are severe and uncontrollable. Abstaining from alcohol is the only effective long-term treatment. If you start drinking again, you will not be able to control yourself after the first drink. Treatment programs are available. In addition, many alcoholics benefit from Alcoholics Anonymous or other support groups available through your counselor or taoism psych sales specialist. AL-ANON and ALA-TEEN are support groups for friends and family members of an alcoholic. Go to the emergency room if you develop persistent vomiting, severe abdominal pain, fever, shortness of breath, hallucinations, uncontrollable tremors, or seizures. AT ANY TIME, IF YOUR SYMPTOMS CHANGE SIGNIFICANTLY OR WORSEN OR YOU DEVELOP NEW SYMPTOMS, RETURN TO THE EMERGENCY DEPARTMENT IMMEDIATELY FOR RE-EVALUATION. Referrals: [facility] [Outside] - Follow up as needed
[2019-02-22 19:19] LABS: ABSOLUTE EOSINOPHILS # (AUTO) 0.1 10^3/uL (0.0-0.6); ABSOLUTE LYMPHOCYTES (AUTO) 2.5 10^3/uL (0.5-4.7); ABSOLUTE MONOCYTES (AUTO) 0.3 10^3/uL (0.1-1.4); BASOPHILS % (AUTO) 0.3 % (0-2); EOSINOPHILS % (AUTO) 0.9 % (0-6); HEMATOCRIT 48.4 % (37.9-51.0); LYMPHOCYTES % (AUTO) 37.2 % (13-45); MEAN CORPUSCULAR HGB CONC 35.1 g/dL (32.0-36.0); MEAN CORPUSCULAR VOLUME 91 fl (80-97); MONOCYTES % (AUTO) 3.7 % (3-13); PLATELET COUNT 303 10^3/uL (150-450); SEGMENTED NEUTROPHILS % (AUTO) 57.9 % (42-78); TOTAL CELLS COUNTED % (AUTO) 100 %; WHITE BLOOD COUNT 6.8 10^3/uL (4.0-10.5)
[2019-02-22 19:43] LABS: INTERNATIONAL RATION (INR) 0.91; PROTHROMBIN TIME 12.2 SEC (11.4-15.4)
--- NOTE | 2019-02-22 20:02 | RADIOLOGY REPORT (SQ) ---
EXAM DESCRIPTION: ACUTE ABDOMEN SERIES COMPLETED DATE/TIME: 02/22/2019 7:31 pm REASON FOR STUDY: abd pain, vomiting COMPARISON: None. NUMBER OF VIEWS: Three views. TECHNIQUE: PA chest, supine abdomen and upright/decubitus abdomen radiographic images acquired. LIMITATIONS: None. FINDINGS: CHEST: Lungs clear of infiltrates. FREE AIR: None. No abnormal gas collections. BOWEL GAS PATTERN: Scattered colonic gas -stool. Few gas-filled small bowel loops. . No distended la rge or small bowel loops. CALCIFICATIONS: No suspicious calcifications. HARDWARE: None in the abdomen. SOFT TISSUES: No gross mass or suggestion of organomegaly. BONES: No acute fracture. No worrisome bone lesions. OTHER: No other significant finding. IMPRESSION: NONSPECIFIC BOWEL GAS PATTERN WITHOUT EVIDENCE FOR OBSTRUCTION. TECHNICAL DOCUMENTATION: JOB ID: [id number] [id number] 2010 [employer]- All Rights Reserved Reading location - IP/workstation name: [email or web address]
[2019-02-22 20:56] LABS: APPEARANCE,URINE CLEAR; BILIRUBIN,URINE NEGATIVE (NEGATIVE); COLOR,URINE STRAW; GLUCOSE, URINE NEGATIVE (NEGATIVE); KETONES,URINE NEGATIVE (NEGATIVE); LEUKOCYTE ESTERASE,URINE SMALL (NEGATIVE); NITRITE,URINE NEGATIVE (NEGATIVE); PROTEIN,URINE NEGATIVE (NEGATIVE); URINE SPECIFIC GRAVITY 1.005; UROBILINOGEN,URINE NEGATIVE mg/dL (<2.0)
[2019-02-22 21:01] LABS: URINE AMPHETAMINES SCREEN NEGATIVE; URINE BARBITURATES SCREEN NEGATIVE; URINE BENZODIAZEPINES SCREEN NEGATIVE; URINE COCAINE SCREEN NEGATIVE; URINE METHADONE SCREEN NEGATIVE; URINE PHENCYCLIDINE SCREEN NEGATIVE
[2019-02-22 21:03] LABS: URINE MARIJUANA (THC) SCREEN UNCONFIRMED POSITIVE
[2019-02-23 03:44] LABS: ALBUMIN 4.4 g/dL (3.5-5.0); ALCOHOL 62 mg/dL (NONE DETECTED); ALKALINE PHOSPHATASE 85 U/L (38-126); ANION GAP 14 (5-19); ASPARTATE AMINO TRANSFERASE 32 U/L (17-59); BILIRUBIN,DIRECT 0.2 mg/dL (0.0-0.4); BILIRUBIN,TOTAL 0.6 mg/dL (0.2-1.3); BLOOD UREA NITROGEN 14 mg/dL (7-20); CALCIUM 9.4 mg/dL (8.4-10.2); CARBON DIOXIDE 23 mmol/L (22-30); CHLORIDE 104 mmol/L (98-107); POTASSIUM 4.7 mmol/L (3.6-5.0); TOTAL PROTEIN 6.8 g/dL (6.3-8.2)
[2019-02-23 03:59] LABS: GLUCOSE 61 mg/dL (75-110)
--- NOTE | 2019-02-23 07:38 | EKG REPORT ---
SEVERITY:- OTHERWISE NORMAL ECG - SINUS ARRHYTHMIA, RATE [id number] : Confirmed by: Cj Olivier MD 23-Feb-2019 07:37:46
--- NOTE | 2019-02-23 11:33 | PSYCHOLOGICAL NOTE ---
Psych Note - Psych Note Date seen by psych provider: 02/23/19 Time seen by psych provider: 08:40 Psych Note: Reason for consult: OD attempt with prescription medications and alcohol This 28-year-old male patient brought to emergency room via EMS for attempted overdose of prescription medication and alcohol. Patient is known to behavioral health team. Patient was last seen by behavioral health on 01/26/2019 for suicidal ideation. Patient admits this event was a suicide attempt. Patient states he called EMS because he was taking with a "friend on Facebook who told me don't be greedy." Patient states he changed his mind about committing suicide and called . Patient states he did not follow through with CPS requirements. Patient states he contacted [facility] and [facility] for mental health services "but no one got back with me." Patient states he made multiple attempts. Patient states he began drinking again on Seney- when he found out his was cheating on him again. Patient states he "feels pretty crappy." Patient states "life just gets crappier and crappier." Patient is experiencing strained relationships with family (mom and estranged ). Patient states his mother will not agree to be his sponsor for supervised visits with CPS because he started drinking again. Updated 4:16- Collateral information obtained from patient's parents who stated patient has significant alcohol issues. Patient has a history of "blaming others when things don't go his way." Patient "lies all the time." Patient refuses to stop drinking and will not engage in substance abuse treatment. Patient's father stated 25-30 bags of trash from the home. Clinician informed patient that his lab work does not support his claim of overdose. Patient looked shocked. Clinician encouraged patient to take advantage of this opportunity for treatment because he was running out of viable options with his continued behavior. Patient is alert and oriented to person, place, time and circumstance. Mood normal with congruent affect. Patient denies current suicidal ideation. Patient denies homicidal ideation. Delusions are absent and behavior is congruent with an intact reality based presentation (i.e. organized and linear thought processes). Patient denies auditory and visual hallucinations. There is no observed behavior that suggests patient is responding to internal stimuli. Eye contact is good. Conversational speech is within normal rate, tone, and prosody. Intellectual ability appears to be within average range. Attention and concentration are good. Insight, judgment, and impulse control are poor. Medication recommendations per [facility] contracted psychiatrist Dr. Ruslan SOSA is as follows: NONE Impression/Plan: Patient is recommended for rescind of IVC and is cleared from acute psychiatric services. Patient is not following up with outpatient mental health services to address mental health concerns and ETOH abuse. Patient was seen by behavioral health on 01/26/2019 for suicidal ideation. Patient attempted suicide on 02/22/2019. There is no physiological measures to support patient's claim of overdose on Effexor, Buspar, Tylenol, and melatonin. There is evidence that patient has severe alcohol concerns. Patient voluntarily elected to present to [facility] for substance abuse treatment. Clinician facilitated transition to [facility]. Dr. Dsouza was consulted on the care and management of this patient; attending physician is in agreement with recommendations and disposition.
[2019-02-23] MEDS ORDERED: MAG HYDROX/AL HYDROX/SIMETH SUSP 30 ML UDCUP PO ONE (13:28)
[2019-02-23] MEDS ORDERED: ONDANSETRON HCL INJ/PF 4 MG/2 ML SDV IV ONE (13:28)
[2019-02-23] MEDS ORDERED: ONDANSETRON 4 MG TAB.RAPDIS PO ONE (13:37)
[2019-02-23] MEDS ORDERED: NICOTINE 21 MG/24 HR PATCH.TD24 TD SCH (15:50)
--- NOTE | 2019-02-23 16:40 | ER Document Report ---
Doctor's Note Notes: 02/23/19 13:20 PHYSICAL EXAMINATION: GENERAL: Well-appearing and in no acute distress. HEAD: Atraumatic, normocephalic. EYES: sclera anicteric, conjunctiva are normal. ENT: nares patent. Moist mucous membranes. NECK: Normal range of motion, supple without lymphadenopathy LUNGS: CTAB and equal. No wheezes rales or rhonchi. HEART: Regular rate and rhythm without murmurs ABDOMEN: Soft, nontender, normal bowel sounds, no guarding. EXTREMITIES: Normal range of motion, no pitting edema. No cyanosis. BACK: No midline tenderness, no step-off or deformity. No CVA tenderness NEUROLOGICAL: Cranial nerves grossly intact. Normal speech. PSYCH: Normal mood, normal affect. SKIN: Warm, Dry, normal turgor, no rashes or lesions noted Reviewed patient's notes and diagnostic test results. Patient medically clear for discharge or transfer pending mental health evaluation at this time. Patient does complain of nausea at this time.
--- NOTE | 2019-02-23 17:40 | ER Document Report ---
Doctor's Note Notes: 02/23/19 17:40 Pt is going to [facility].
[2019-02-23 17:55] VITALS: BP 133/90
== END 2019-02-23 17:49 | disposition home or self-care (01) ==
LOC: ER 17:19
DX: F10.10 Alcohol abuse, uncomplicated (principal); T51.0X2A Toxic effect of ethanol, intentional self-harm, initial encounter; T43.592A Poisoning by other antipsychotics and neuroleptics, intentional self-harm, initial encounter; T43.212A Poisoning by selective serotonin and norepinephrine reuptake inhibitors, intentional self-harm, initial encounter; T39.1X2A Poisoning by 4-Aminophenol derivatives, intentional self-harm, initial encounter; T50.992A Poisoning by other drugs, medicaments and biological substances, intentional self-harm, initial encounter; K92.0 Hematemesis; R10.9 Unspecified abdominal pain; R10.817 Generalized abdominal tenderness; F17.200 Nicotine dependence, unspecified, uncomplicated; Z75.1 Person awaiting admission to adequate facility elsewhere; Z63.5 Disruption of family by separation and divorce
CPT/HCPCS: 93005 ×2; 99285; 96360; 96361; 36415; 82962; 80307 ×4; 83690; 85025; 85610; 80053; 81001; 74022; 93010 ×2; S0119; J7030

== ENCOUNTER 2019-06-15 06:41 | Emergency (ER) | payer SELFPAY ==
[2019-06-15] MEDS ORDERED: BENZONATATE 100 MG CAPSULE PO ONE (07:35)
--- NOTE | 2019-06-15 08:26 | RADIOLOGY REPORT (SQ) ---
EXAM DESCRIPTION: CHEST SINGLE VIEW IMAGES COMPLETED DATE/TIME: 06/15/2019 8:03 am REASON FOR STUDY: cough COMPARISON: None. EXAM PARAMETERS: NUMBER OF VIEWS: One view. TECHNIQUE: Single frontal radiographic view of the chest acquired. RADIATION DOSE: NA LIMITATIONS: None. FINDINGS: LUNGS AND PLEURA: No opacities, masses or pneumothorax. No pleural effusion. MEDIASTINUM AND HILAR STRUCTURES: No masses. Contour normal. HEART AND VASCULAR STRUCTURES: Heart normal in size. Normal vasculature. BONES: No acute findings. HARDWARE: None in the chest. OTHER: No other significant finding. IMPRESSION: No focal airspace disease or other evidence of acute intrathoracic process. TECHNICAL DOCUMENTATION: JOB ID: [id number] 2010 [employer]- All Rights Reserved Reading location - IP/workstation name: [email or web address]
[2019-06-15 09:04] LABS: ABSOLUTE EOSINOPHILS # (AUTO) 0.5 10^3/uL (0.0-0.6); ABSOLUTE LYMPHOCYTES (AUTO) 1.8 10^3/uL (0.5-4.7); ABSOLUTE MONOCYTES (AUTO) 0.5 10^3/uL (0.1-1.4); ABSOLUTE NEUT (AUTO) 9.5 10^3/uL (1.7-8.2); BASOPHILS % (AUTO) 0.4 % (0-2); EOSINOPHILS % (AUTO) 4.3 % (0-6); HEMATOCRIT 48.6 % (37.9-51.0); HEMOGLOBIN 17.3 g/dL (13.5-17.0); LYMPHOCYTES % (AUTO) 14.5 % (13-45); MEAN CORPUSCULAR HEMOGLOBIN 32.9 pg (27.0-33.4); MEAN CORPUSCULAR HGB CONC 35.6 g/dL (32.0-36.0); MEAN CORPUSCULAR VOLUME 93 fl (80-97); MONOCYTES % (AUTO) 4.1 % (3-13); PLATELET COUNT 227 10^3/uL (150-450); RED BLOOD COUNT 5.25 10^6/uL (4.35-5.55); RED CELL DISTRIBUTION WIDTH 13.1 % (11.5-14.0); SEGMENTED NEUTROPHILS % (AUTO) 76.7 % (42-78); TOTAL CELLS COUNTED % (AUTO) 100 %; WHITE BLOOD COUNT 12.3 10^3/uL (4.0-10.5)
[2019-06-15 09:24] LABS: ALBUMIN 4.8 g/dL (3.5-5.0); ALKALINE PHOSPHATASE 90 U/L (38-126); ANION GAP 17 (5-19); ASPARTATE AMINO TRANSFERASE 39 U/L (17-59); BILIRUBIN,TOTAL 0.5 mg/dL (0.2-1.3); BLOOD UREA NITROGEN 10 mg/dL (7-20); CALCIUM 8.8 mg/dL (8.4-10.2); CARBON DIOXIDE 19 mmol/L (22-30); CHLORIDE 105 mmol/L (98-107); GLUCOSE 100 mg/dL (75-110); TOTAL PROTEIN 7.4 g/dL (6.3-8.2)
--- NOTE | 2019-06-15 09:38 | ER Document Report ---
ED General - General Chief Complaint: Shortness Of Breath Stated Complaint: SHORTNESS OF BREATH Time Seen by Provider: 06/15/19 07:20 Mode of Arrival: Medic Information source: Patient TRAVEL OUTSIDE OF THE [place] IN LAST 30 DAYS: No - HPI Notes: Patient presents with shortness of breath. Despite being asked multiple times patient states he cannot tell me how long this is been going on. Apparently at least since yesterday. He states he has had a cough. He states he does not know of any COVID exposures. He states he is coughing up yellow-green mucus. He states his nose is congested. He states his throat is sore. Throat pain is constant and burning. It appears to be moderate. It hurts with swallowing and better if he does not swallow. No known radiation of this pain. No past medical history of significant pulmonary pathology. He does have a history of anxiety. No known fevers. Due to the COVID pandemic the entire visit was done by telemedicine. Patient was in the emergency department in a room however I did not enter the room I conducted it through the use of telemedicine with [employer] hardware and software. - Related Data Allergies/Adverse Reactions: No Known Allergies Allergy (Verified 05/04/15 16:24) Past Medical History - General Information source: Patient - Social History Smoking Status: Current Every Day Smoker Frequency of alcohol use: None Drug Abuse: None Family History: Reviewed & Not Pertinent Patient has suicidal ideation: No Patient has homicidal ideation: No Psychiatric Medical History: Reports: Hx Depression Past Surgical History: Reports: Hx Orthopedic Surgery - left hand 2008 - Immunizations Hx Diphtheria, Pertussis, Tetanus Vaccination: Yes Review of Systems - Review of Systems Constitutional: Malaise, Weakness Cardiovascular: denies: Chest pain, Palpitations Respiratory: Cough, Short of breath -: Yes All other systems reviewed and negative Physical Exam - Vital signs Vitals: Temp Pulse Resp BP Pulse Ox 98.6 F 75 20 132/92 H 97 06/15/19 06:59 06/15/19 06:59 06/15/19 06:59 06/15/19 06:59 06/15/19 06:59 Interpretation: Normal - Notes Notes: Exam was done by use of telemedicine. - General General appearance: Appears well, Alert In distress: None - HEENT Head: Normocephalic Eyes: Normal Mouth/Lips: Normal Neck: Normal - Respiratory Respiratory status: No respiratory distress Breath sounds: Normal - Cardiovascular Normal capillary refill: Yes - Abdominal Distension: No distension - Extremities General upper extremity: Normal inspection General lower extremity: Normal inspection - Neurological Cognition: Normal [place] Coma Scale Eye Opening: Spontaneous [place] Coma Scale Verbal: Oriented [place] Coma Scale Motor: Obeys Commands [place] Coma Scale Total: 15 Speech: Normal - Psychological Associated symptoms: Normal affect, Anxious - Skin Skin Color: Normal Course - Re-evaluation Re-evalutation: 06/15/19 09:37 Patient presents complaining of shortness of breath. He has no respiratory distress. He has no audible breath sounds through telemedicine. He does not appear labored. He is able to recline without problem. He complains of severe cough and states he got no relief from Tessalon Perles. He also asked if he can have an inhaler for home. He has no known covert exposures. His vital signs are normal and stable. He has a mildly elevated white blood cell count. I am going to start the patient on some Zithromax and inhaler and cough medicine and have the patient follow-up with his primary care doctor - Vital Signs Vital signs: Temp Pulse Resp BP Pulse Ox 98.6 F 75 20 132/92 H 97 06/15/19 06:59 06/15/19 06:59 06/15/19 06:59 06/15/19 06:59 06/15/19 06:59 - Laboratory Result Diagrams: 06/15/19 08:33 06/15/19 08:33 Laboratory results interpreted by me: 06/15/19 06/15/19 08:33 08:33 WBC 12.3 H Hgb 17.3 H Absolute Neuts (auto) 9.5 H Carbon Dioxide 19 L - Diagnostic Test Radiology reviewed: Image reviewed, Reports reviewed Discharge - Discharge Clinical Impression: URI (upper respiratory infection) Qualifiers: URI type: unspecified URI Qualified Code(s): J06.9 - Acute upper respiratory infection, unspecified Condition: Stable Disposition: HOME, SELF-CARE Instructions: Upper Respiratory Illness ([facility]) Additional Instructions: Please call your primary care doctor soon as possible to arrange follow-up Prescriptions: Hydrocodone Bit/Homatropine [Hycodan Syrup 5-1.5 mg/5 ml Ud Cup] 5 ml PO Q4HP PRN #120 ml PRN Reason: Albuterol Sulfate [Proair Digihaler] 90 mcg IH Q4 14 Days #1 aer.pw.bas Azithromycin [Zithromax 250 mg Tablet] 250 mg PO ASDIR PRN #6 tablet PRN Reason: Referrals: [facility] [Provider Group] - Follow up as needed
[2019-06-15 09:58] VITALS: BP 112/54
== END 2019-06-15 10:18 | disposition home or self-care (01) ==
LOC: ER 06:41
DX: J06.9 Acute upper respiratory infection, unspecified (principal); R06.02 Shortness of breath; R05 Cough; R07.0 Pain in throat; R13.10 Dysphagia, unspecified; R53.81 Other malaise; R53.1 Weakness; F17.200 Nicotine dependence, unspecified, uncomplicated
CPT/HCPCS: 36415; 71045; 80053; 85025; 87070; 87880; 99283